=== PATIENT | female | born 1975 | race Caucasian/White ===

== ENCOUNTER 2017-05-28 06:06 | Day surgery (SDC) | payer BC, OTHER ==
[~2017-05-28] VITALS: Ht 165.1 cm; Wt 70.4 kg
[~2017-05-28 06:06] MED LIST: CYCL-319 PO; HYDR-3498 PO; IBUP-1542 PO; NAPR-260 PO
[2017-05-28 06:34] VITALS: Ht 165.1 cm; Wt 70.4 kg
[2017-05-28] MEDS ORDERED: ESOM40CA PO (06:43)
[2017-05-28 07:07] VITALS: BP 119/63; PULSE 74; RESP 21
--- NOTE | 2017-05-28 07:46 | OPPN ---
Date/Time of Note Date/Time of Note DATE: 05/28/17 TIME: 07:44 Operative Report Preoperative Diagnosis Abdominal pain Chronic heartburn Postoperative Diagnosis Severe reflux esophagitis with ulcerations in the esophagus Status post lap band placement Gastritis with erosions Operation/Procedure Performed Esophagogastroduodenoscopy and biopsy Surgeon see signature line human resource assistant None Anesthesia: moderate sedation Estimated blood loss: none Transfusion Required none Specimen Gastric mucosal biopsy Grafts/Implants none Complications none COURTNEY PALACOIS MD May 28, 2017 07:46
[2017-05-28] MEDS ORDERED: FENTAnyl 50 MCG/ML VIAL ONE (07:47)
[2017-05-28] MEDS ORDERED: MIDAZOLAM 1 MG/ML 2 ML INJ ONE (07:47)
--- NOTE | 2017-05-28 10:43 | GILP ---
DATE OF PROCEDURE: NAME OF PROCEDURES: Esophagogastroduodenoscopy and biopsy. SURGEON: Courtney Lucero MD. PREOPERATIVE DIAGNOSES: 1. Abdominal pain. 2. Chronic heartburn. POSTOPERATIVE DIAGNOSES: 1. Severe reflux esophagitis with ulcerations in the esophagus. 2. Gastritis with erosions. 3. Status post lap band placement. 4. Gastric mucosal biopsies were taken for Helicobacter pylori test. INDICATION FOR THE PROCEDURE: Ms. Rebecca Doty is a 41-year-old female patient who had upper a bdominal pain and chronic heartburn, not responding to therapy. The patient was scheduled for endos copic examination for further evaluation. The procedure and possible complications were well explained to the patient. The patient understood and consented to the procedure. DESCRIPTION OF PROCEDURE: Under the influence of fentanyl and Versed, the gastroscope was carefully introduced into the esophagus and under direct vision, it was advanced to the stomach and through t he pylorus into the duodenal bulb and descending duodenum. FINDINGS: ESOPHAGUS: The patient had severe reflux esophagitis and multiple ulcers in the esophagus. STOMACH: She had gastritis with erosions. She was status post lap band placement. Gastric mucosal biopsies were taken for H. pylori test. DUODENUM: Normal. She tolerated the procedure very well and there was no complication from the procedure. At the end of the procedures, she was awake with stable vital signs and she was discharged home to the care of her family. IMPRESSION: Please see postoperative diagnosis. PLAN: 1. Continue Nexium. 2. Add Carafate 1 g p.o. t.i.d. before meals. 3. Await H. pylori test report. 4. If the symptoms do not improve, patient needs removal of the lap band. Dictated By: COURTNEY PATRICIA/JOSSUE Conf#: [id number] DID#: [id number]
== END 2017-05-28 10:23 | disposition home or self-care (01) ==
LOC: GIL 06:06
PROVIDERS: ATTEND Internal Medicine Gastroenterology
DX: K21.0 Gastro-esophageal reflux disease with esophagitis (principal); K22.10 Ulcer of esophagus without bleeding; K29.60 Other gastritis without bleeding
CPT/HCPCS: 43239; 84703; 87081; J2250; J3010; Z7610